=== PATIENT | female | born 1995 | race Two or more races ===

== ENCOUNTER 2021-11-16 08:15 | Inpatient (IN) | payer OTHER ==
[~2021-11-16] VITALS: Ht 154.9 cm; Wt 68.9 kg
--- NOTE | 2021-11-16 08:27 | NUR ---
SE RECIBE PACIENTE ALERTA, ORIENTADA X 3 ESFERAS REFIERE TENERVOMITOS Y DIARREAS HACE 3 CABRERA , SE ESTIMAN S/V SE UBICA EN AREA DE OBSERVACION.
--- NOTE | 2021-11-16 09:14 | NUR ---
SE LE ORIENTA A PTE SOBRE TRATAMIENTO A SEGUIR, SARAH REFIERE ENTENDER. SE LE COLECTA MUESTRAS, SE CANALIZA Y SE ADMINISTRA MEDICAMENTO AVEL ORDEN MEDICA UTILIZANDO MEDIDAS ASEPTICAS. PENDIENTE FECAL
[2021-11-19] MEDS ORDERED: INTESTINEX680 M1 PO (16:21)
[2021-11-19] MEDS ORDERED: METRONIDAZOLE500 MG PO (16:21)
[2021-11-19] MEDS ORDERED: CIPRO500 MG PO (16:21)
== END 2021-11-19 17:27 | disposition home or self-care (01) | DRG 373 ==
LOC: ER 08:15 → MEDI 19:55 → SEC-K 19:55 → MEDI 11-17 01:09
PROVIDERS: ADMIT Internal Medicine; ATTEND Internal Medicine
PROC: BW21ZZZ Computerized Tomography (CT Scan) of Abdomen and Pelvis (ICD-10-PCS; principal; 2021-11-16)
DX: A04.72 Enterocolitis due to Clostridium difficile, not specified as recurrent (principal); I88.0 Nonspecific mesenteric lymphadenitis; D69.6 Thrombocytopenia, unspecified; Z20.822 Contact with and (suspected) exposure to COVID-19